=== PATIENT | male | born 1995 | race Caucasian/White ===

== ENCOUNTER 2017-12-02 20:45 | Emergency (ER) | payer SELFPAY ==
[~2017-12-02] VITALS: Ht 175.3 cm; Wt 60.6 kg
[2017-12-02 20:45] VITALS: BP 133/42
--- NOTE | 2017-12-02 20:53 | NUR ---
VIJAY HAYWOOD MADE AWARE. PT ASSISTED TO LOBBY
--- NOTE | 2017-12-02 21:17 | NUR ---
pt taken to CT
--- NOTE | 2017-12-02 21:25 | NUR ---
PT RETURN FROM CT TO ER LOBBY
--- NOTE | 2017-12-02 22:36 | NUR ---
PT TAKEN TO BED 10
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
--- NOTE | 2017-12-02 23:13 | NUR ---
Dr. Morfin evaluating patient at bedside.
--- NOTE | 2017-12-02 23:36 | NUR ---
PT TAKEN TO RADIOLOGY
[2017-12-02] MEDS ORDERED: KETOROLAC 60 MG/2 ML VIAL IM ONE (23:50)
--- NOTE | 2017-12-03 | NUR ---
PT RESTING COMFORTABLY IN BED, RR EVEN AND UNLABORED. ALL NEEDS MET.
[2017-12-03 01:05] VITALS: BP 118/69
--- NOTE | 2017-12-03 01:05 | NUR ---
Patient discharged with v/s stable. Written and verbal after care instructions given and explained. Patient alert, oriented and verbalized understanding of instructions. Ambulatory with steady gait. All questions addressed prior to discharge. ID band removed. Patient advised to follow up with PMD. Rx of NAPROXEN 500MG, CYCLOBENZAPRINE 10MG given. Patient educated on indication of medication including possible reaction and side effects. Opportunity to ask questions provided and answered.
== END 2017-12-03 01:05 | disposition home or self-care (01) ==
LOC: MED 20:45
DX: S16.1XXA Strain of muscle, fascia and tendon at neck level, initial encounter (principal); S06.0X0A Concussion without loss of consciousness, initial encounter; V49.40XA Driver injured in collision with unspecified motor vehicles in traffic accident, initial encounter; Y93.89 Activity, other specified; Y92.488 Other paved roadways as the place of occurrence of the external cause; Y99.8 Other external cause status
CPT/HCPCS: 70450; 71046; 72125; 74176; 96372; 99284; J1885